=== PATIENT | male | born 1970 | race African-American/Black ===

== ENCOUNTER 2023-07-18 14:47 | Emergency (ER) | payer BC ==
[~2023-07-18] VITALS: Ht 177.8 cm; Wt 72.7 kg
[2023-07-18 15:18] VITALS: BP 127/83; PULSE 88; RESP 18; TEMP 98.5; O2SAT 100
[2023-07-18] MEDS ORDERED: LIDOCAINE HCL 1% 20ML VIAL (Pyxis) INJ INFIL ONE (18:45)
[2023-07-18] MEDS: TETANUS, DIPHTHERIA, PERTUSSIS VAC/PF 0.5ML (>10YR OLD) IM ONE (18:53)
[2023-07-18] MEDS ORDERED: NAPR-681 MT (19:59)
== END 2023-07-18 20:52 | disposition home or self-care (01) ==
LOC: ER 14:47
DX: S01.81XA Laceration without foreign body of other part of head, initial encounter (principal); S20.212A Contusion of left front wall of thorax, initial encounter; X58.XXXA Exposure to other specified factors, initial encounter; Y93.89 Activity, other specified; Y92.89 Other specified places as the place of occurrence of the external cause; Y99.8 Other external cause status
CPT/HCPCS: 99283; 71045; 90715; 12013; 90471; 93005; J3490

== ENCOUNTER 2023-07-26 13:06 | Emergency (ER) | payer BC ==
[~2023-07-26] VITALS: Ht 175.3 cm; Wt 73.0 kg
[~2023-07-26 13:06] MED LIST: NAPR-681 MT
[2023-07-26 13:18] VITALS: BP 155/78; PULSE 85; RESP 16; TEMP 98.2; O2SAT 99
== END 2023-07-26 14:09 | disposition home or self-care (01) ==
LOC: ER 14:04
DX: S01.81XD Laceration without foreign body of other part of head, subsequent encounter (principal); Z48.02 Encounter for removal of sutures; X58.XXXD Exposure to other specified factors, subsequent encounter
CPT/HCPCS: 99281